=== PATIENT | female | born 1975 | race Caucasian/White ===

== ENCOUNTER 2017-11-25 21:35 | Emergency (ER) | payer OTHER, MEDICAID ==
[~2017-11-25] VITALS: Ht 157.5 cm; Wt 68.0 kg
[~2017-11-25 21:35] MED LIST: CIPR500T4 PO
[2017-11-25 21:45] VITALS: BP 169/90; PULSE 80; TEMP 98.3; O2SAT 99
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
[2017-11-25] MEDS ORDERED: MORPHINE SULFATE 4 MG/ML INJ IM ONE (23:45)
[2017-11-25] MEDS ORDERED: LIDOCAINE 1%/EPINEPHrine 1:100,000 SOLN 50 ML VIAL INFIL ONE (23:45)
[2017-11-26] MEDS ORDERED: DICL75TA PO (00:14)
[2017-11-26] MEDS ORDERED: CYCL10TA PO (00:14)
[2017-11-26] MEDS ORDERED: NORC5TAB PO (00:14)
== END 2017-11-26 01:23 | disposition home or self-care (01) ==
LOC: NEPD 21:35
DX: S01.01XA Laceration without foreign body of scalp, initial encounter (principal); S00.93XA Contusion of unspecified part of head, initial encounter; S16.1XXA Strain of muscle, fascia and tendon at neck level, initial encounter; S93.401A Sprain of unspecified ligament of right ankle, initial encounter; V28.5XXA Motorcycle passenger injured in noncollision transport accident in traffic accident, initial encounter; Y92.410 Unspecified street and highway as the place of occurrence of the external cause
CPT/HCPCS: 12002; 70450; 72125; 73610; 96372; 99284; E0113; J2270